=== PATIENT | male | born 1950 | race Caucasian/White ===

== ENCOUNTER → 2020-10-07 08:38 | Outpatient (CLI) | payer MEDICARE, OTHER, SELFPAY ==
--- NOTE | 2020-10-07 08:50 | DI.CT.S_ITS ---
PROCEDURE: CT ABDOMEN PELVIS WO CON INDICATIONS: Calculus of kidney TECHNIQUE: Noncontrast 5 mm thick sections acquired from the diaphragms to the symphysis. 5 mm thick coronal and sagittal reformats were then performed. For radiation dose reduction, the following was used: automated exposure control, adjustment of mA and/or kV according to patient size. COMPARISON: None. FINDINGS: Image quality: Excellent. Lung bases: Lung bases are clear. Heart size is normal. 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 The upper pole moiety demonstrates severe chronic hydronephrosis with diffuse and complete thinning of the upper pole moiety cortex. There is a queta ureter draining the upper pole, tortuous and redundant and course. It inserts on the upper aspect of the right urinary bladder, iatrogenic versus [place]. There are a few punctate, nonobstructing, and linear calcifications posteriorly in the upper pole calyx, largest linear calcification measuring about 7 mm. There are several coarse, cast like nonobstructing linear calcifications, or collections of stones dependently in the lower pole of the right kidney which does not demonstrate significant hydronephrosis. There is moderate hydroureter, also with a very tortuous course, and lower insertion on the urinary bladder. There are no visible ureteral calcifications. The left kidney also demonstrates intrarenal duplication. 3.7 cm cortical cyst arises from the anterior lower pole. There are a few punctate nonobstructing upper pole intrarenal calcifications, the largest measuring about 3 mm. There is no hydroureter neural duplication extends into the pelvis in the insertion on the urinary bladder of either ureters not well seen. There is a vertically oriented septation within the posterior aspect of the urinary bladder of uncertain etiology. No urinary bladder stones. The prostate gland is normal size. Other solid organs: Liver is normal in size. Gallbladder is surgically absent. . Pancreas is normal in contours. Spleen is normal in size. No adrenal nodules. Peritoneum and bowel: Unenhanced bowel loops demonstrate normal wall thickness and caliber. No free fluid or air. Nodes and vessels: No retroperitoneal or mesenteric adenopathy by size criteria. Aorta and inferior vena cava are normal in caliber. Moderate abdominal aortic atherosclerotic calcification. Abdominal wall: No ventral hernias. Pelvis: No free pelvic fluid. No inguinal hernias or adenopathy. Bones: No suspicious bony lesions. No vertebral body compression fractures. IMPRESSION: 1. No obstructing calcifications. 2. Bilateral nonobstructing calcifications of varying sizes, more numerous in the right kidney than left. 3. 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 4. No evidence of left-sided hydroureter. 5. Probable iatrogenic, vertically oriented urinary bladder septation, likely secondary to ureteral re implantation. No evidence of urinary bladder stones. Dictated by: Meme Wilks M.D. on 10/07/2020 at 9:51 Approved by: Meme Wilks M.D. on 10/07/2020 at 10:08
== END ==
PROVIDERS: Family Provider Family Medicine; PCP Family Medicine; Referring Provider Family Medicine; Visit Provider Urology
DX: N20.0 Calculus of kidney (principal); N13.30 Unspecified hydronephrosis; N28.82 Megaloureter
CPT/HCPCS: 74176